=== PATIENT | male | born 1965 | race American Indian/Alaskan Native ===

== ENCOUNTER 2021-10-20 11:00 | Outpatient (CLI) | payer OTHER ==
--- NOTE | 2021-10-20 11:50 | XRay Report ---
Comments in bilateral hips INDICATION: FINDINGS: Bilateral femoral heads well-seated in the acetabulum. No acute fracture dislocation. No so ft tissue abnormality is seen. Sacrum appears normal. Signer Name: Say Magana MD Signed: 10/20/2021 11:45 AM Workstation Name: [id number]
== END 2021-10-20 11:01 | disposition home or self-care (01) ==
LOC: XRAY 11:00
PROVIDERS: ATTEND Internal Medicine
DX: Z02.71 Encounter for disability determination (principal)
CPT/HCPCS: 73521